=== PATIENT | female | born 1990 | race American Indian/Alaskan Native ===

== ENCOUNTER 2021-07-05 17:57 | Inpatient (IN) | payer OTHER ==
--- NOTE | 2021-07-05 18:07 | History and Physical Report ---
History of Present Illness Date of examination: 07/05/21 Date of admission: 07/05/21 17:57 Chief complaint: Presents in EMS with a viable female that delivered at 1725 on 07/05/2021. History of present illness: States she received care at [facility] [place]. States her course was complicated by Anemia and she was taking PO FeSO4. Past History Past Medical History: no pertinent history Past Surgical History: no surgical history Family/Genetic History: diabetes (DM), hypertension (Mother), cancer (Mother: Ovarian CA) - Obstetrical History Expected Date of Delivery: 07/03/21 Actual Gestation: 40 Week(s) 2 Day(s) : 5 Para: 3 Induced : 2 Number of Living Children: 3 Review of Systems All systems: negative - Vital Signs Vital signs: Vital Signs Pulse BP 92 H 121/66 07/05/21 17:59 07/05/21 17:59 Temp Pulse Resp BP Pulse Ox 92 H 121/66 07/05/21 17:59 07/05/21 17:59 - Physical Exam Breasts: Positive: normal Cardiovascular: Regular rate Lungs: Positive: Clear to auscultation Abdomen: Positive: normal appearance, soft, normal bowel sounds Genitourinary (Female): Positive: normal external genitalia, normal perenium Vagina: Positive: normal moisture Uterus: Positive: enlarged Anus/Rectum: Positive: normal perianal skin Extremities: Positive: normal - Obstetrical FHR: auscultation normal Results All other labs normal. Assessment and Plan A: at Term P: Admit to L&D Per Routine Orders Placenta delivered by Dr. Aguilera Transfer to Mother/Baby in one hour
[2021-07-05] MEDS ORDERED: WITCH HAZEL/ GLYCERIN PAD TP PRN (18:13)
[2021-07-05] MEDS ORDERED: LANOLIN/ZINC/DIMETHICONE (LANSINOH) 7 GM TP PRN (18:13)
[2021-07-05] MEDS ORDERED: diphenhydrAMINE 25 MG CAP PO PRN (18:13)
[2021-07-05] MEDS ORDERED: HYDROcodone/ACETAMINOPHEN 5-325 MG TAB PO PRN (18:13)
[2021-07-05] MEDS ORDERED: HYDROCORTISONE 25 MG RECTAL SUPP PR PRN (18:13)
--- NOTE | 2021-07-05 18:28 | Procedure Note ---
OB Delivery Note - Delivery Date of Delivery: 07/05/21 Surgeon: MICAELA MAGANA Estimated blood loss: 300cc - Vaginal Delivery presentation: vertex Intrapartum events: precipitous labor- <3hr (pt delivered at hospital entrance in the ambulance) Delivery induction: none Delivery monitor: none Route of delivery: Delivery placenta: spontaneous (done by me) Episiotomy: none Delivery laceration: none Anesthesia: none Delivery comments: SAVD precipitously in ambulance by their personel at 17:25pm, pt came to labor and delivery and placenta delivered by me at 17:52pm. Pt checked and noted to have no lacerations to cervix or vagina. Bimanual massage done and pt offered pitocin and she declined same. Will check CBC now. Baby evaluated by pediatric team. NO APGARS could be assigned since baby came to labor suite after 8mins. Wt. 3180g - Infant A Gender: Female (wt 3180g)
[2021-07-05] MEDS ORDERED: IBUPROFEN 600 MG TAB PO SCH (19:00)
[2021-07-05] MEDS ORDERED: PRENATAL VIT27-FE FUMARATE-FOLIC ACID VIT TAB PO SCH (19:00)
[2021-07-05 21:26] VITALS: BP 111/63
== END 2021-07-05 21:00 | disposition left against medical advice (07) | DRG 775 ==
LOC: LD 17:57
PROVIDERS: ADMIT Obstetrics & Gynecology; ATTEND Obstetrics & Gynecology
PROC: 10E0XZZ Delivery of Products of Conception, External Approach (ICD-10-PCS; principal; 2021-07-05)
DX: O48.0 Post-term pregnancy (principal); Z3A.40 40 weeks gestation of pregnancy; Z37.0 Single live birth; Z83.3 Family history of diabetes mellitus; Z82.49 Family history of ischemic heart disease and other diseases of the circulatory system; Z80.41 Family history of malignant neoplasm of ovary
CPT/HCPCS: 88307; G0378